=== PATIENT | female | born 1970 | race African-American/Black ===

== ENCOUNTER 2019-05-10 11:18 | Inpatient (IN) | payer SELFPAY ==
[~2019-05-10] VITALS: Ht 149.9 cm; Wt 62.6 kg
[2019-05-10] MEDS ORDERED: CLON-457 PO (11:44)
[2019-05-10] MEDS ORDERED: HYDR25TA PO (11:44)
[2019-05-10] MEDS ORDERED: ONDANSETRON HCL 4MG/2ML INJ IV STA (13:34)
[2019-05-10] MEDS ORDERED: MORPHINE SULFATE 4 MG/ML CPJ (NOT FOR IM USE) IV STA (13:34)
[2019-05-10 14:02] LABS: BASOPHILS % 0.5 % (0.0-2.0); EOSINOPHILS % 1.1 % (0.0-5.0); HEMATOCRIT. 37.8 % (36.0-48.0); HEMOGLOBIN. 12.7 g/dL (12.0-16.0); LYMPHOCYTES % 30.6 % (20.0-50.0); MEAN CORPUSCULAR VOLUME 92.5 fL (81.0-99.0); MEAN PLATELET VOLUME 8.6 fl (7.4-10.4); MONOCYTES % 9.7 % (2.0-8.0); NEUTROPHILS % 58.1 % (40.0-76.0); PLATELET 235 x1000/uL (130-400); RED BLOOD CELL COUNT 4.09 mill/uL (4.2-5.4); RED CELL DISTRIBUTION WIDTH 14.4 % (11.6-14.6)
[2019-05-10 14:08] LABS: CHLORIDE 110 mEq/L (98-107)
[2019-05-10] MEDS ORDERED: ASPIRIN 81MG TABLET PO ONE (14:30)
[2019-05-10] MEDS ORDERED: MAGNESIUM/ALUMINUM HYDROXIDE/SIMETHICONE 30ML UDC PO PRN (17:00)
[2019-05-10] MEDS ORDERED: ACETAMINOPHEN 325MG TABLET PO PRN (17:00)
[2019-05-10] MEDS ORDERED: HYDROCODONE/ACETAMINOPHEN 5/325MG TABLET PO PRN (17:00)
[2019-05-10 17:24] LABS: *AMPHETAMINES SCREEN URINE NEGATIVE (NEGATIVE); *BARBITURATES SCREEN URINE NEGATIVE (NEGATIVE); *BENZODIAZEPINES SCREEN URINE NEGATIVE (NEGATIVE); CANNABINOID URINE SCREEN NEGATIVE (NEGATIVE); METHADONE URINE SCREEN NEGATIVE (NEGATIVE); OPIATES URINE SCREEN NEGATIVE (NEGATIVE); PHENCYCLIDINE URINE SCREEN NEGATIVE (NEGATIVE)
[2019-05-10 17:25] LABS: *COCAINE SCREEN URINE NEGATIVE (NEGATIVE)
[2019-05-10] MEDS: MORPHINE SULFATE 2 MG/ML CPJ (NOT FOR IM USE) IV PRN (19:33)
[2019-05-10 22:30] VITALS: BP 185/87
[2019-05-10] MEDS ORDERED: LIDOCAINE 5% PATCH TOP SCH (23:00)
[2019-05-11] VITALS: BP 185/87
[2019-05-11] MEDS: IBUPROFEN 400MG TABLET PO SCH ×4 (00:34→18:34)
[2019-05-11] MEDS: CLONIDINE 0.1MG TABLET PO SCH ×4 (00:35→21:07)
[2019-05-11] MEDS: MORPHINE SULFATE 2 MG/ML CPJ (NOT FOR IM USE) IV PRN ×5 (00:36→20:03)
[2019-05-11 04:00] VITALS: BP_SYST 140; BP_SYST 147; BP_SYST 155; BP_DIAS 80; BP_DIAS 84; BP_DIAS 89
[2019-05-11] MEDS: ONDANSETRON HCL 4MG/2ML INJ IV PRN ×2 (05:19→15:25)
[2019-05-11 07:27] LABS: BASOPHILS % 0.5 % (0.0-2.0); EOSINOPHILS % 1.7 % (0.0-5.0); HEMATOCRIT. 38.4 % (36.0-48.0); HEMOGLOBIN. 12.8 g/dL (12.0-16.0); LYMPHOCYTES % 41.7 % (20.0-50.0); MEAN CORPUSCULAR VOLUME 93.4 fL (81.0-99.0); MEAN PLATELET VOLUME 8.6 fl (7.4-10.4); MONOCYTES % 9.4 % (2.0-8.0); NEUTROPHILS % 46.7 % (40.0-76.0); PLATELET 214 x1000/uL (130-400); RED BLOOD CELL COUNT 4.11 mill/uL (4.2-5.4); RED CELL DISTRIBUTION WIDTH 14.6 % (11.6-14.6)
[2019-05-11] MEDS ORDERED: REGADENOSON 0.4 MG/5 ML IV SCH (07:30)
[2019-05-11] MEDS ORDERED: CLONIDINE 0.1MG TABLET PO SCH (07:30)
[2019-05-11 08:00] VITALS: BP 140/81
[2019-05-11 08:04] LABS: CHLORIDE 109 mEq/L (98-107)
[2019-05-11 08:11] LABS: LDL CHOLESTEROL 109 mg/dL (5-100)
[2019-05-11 08:12] LABS: PHOSPHORUS 3.4 mg/dL (2.5-4.9)
[2019-05-11 08:13] LABS: HDL CHOLESTEROL 55 mg/dL (40-59)
[2019-05-11] MEDS: HYDROCHLOROTHIAZIDE 25MG TABLET PO SCH ×2 (09:00→10:36)
[2019-05-11 12:00] VITALS: BP 135/81
[2019-05-11 12:15] LABS: HCG SCREEN NEGATIVE
[2019-05-11 16:00] VITALS: BP_SYST 129; BP_SYST 130; BP_SYST 132; BP_DIAS 78; BP_DIAS 79; BP_DIAS 80
[2019-05-11 20:00] VITALS: BP 126/78
[2019-05-12] MEDS: MORPHINE SULFATE 2 MG/ML CPJ (NOT FOR IM USE) IV PRN ×3 (00:11→08:41)
[2019-05-12 04:00] VITALS: BP 143/86
[2019-05-12] MEDS: CLONIDINE 0.1MG TABLET PO SCH (06:00)
[2019-05-12] MEDS: IBUPROFEN 400MG TABLET PO SCH ×2 (06:07)
[2019-05-12 06:45] LABS: BASOPHILS % 0.3 % (0.0-2.0); EOSINOPHILS % 1.8 % (0.0-5.0); HEMATOCRIT. 39.3 % (36.0-48.0); LYMPHOCYTES % 37.9 % (20.0-50.0); MEAN CORPUSCULAR HEMOGLOBIN 30.7 pg (28.0-32.0); MEAN CORPUSCULAR VOLUME 93.2 fL (81.0-99.0); MEAN PLATELET VOLUME 8.3 fl (7.4-10.4); MONOCYTES % 9.2 % (2.0-8.0); NEUTROPHILS % 50.8 % (40.0-76.0); PLATELET 211 x1000/uL (130-400); RED BLOOD CELL COUNT 4.22 mill/uL (4.2-5.4); RED CELL DISTRIBUTION WIDTH 14.3 % (11.6-14.6)
[2019-05-12 07:07] LABS: CHLORIDE 105 mEq/L (98-107)
[2019-05-12 08:00] VITALS: BP 124/64
[2019-05-12 08:41] VITALS: BP 124/64
== END 2019-05-12 10:50 | disposition left against medical advice (07) | DRG 198 ==
LOC: ER 12:24 → 6WST 15:25 → ENRESERV 20:45 → 6WST 05-11
PROVIDERS: ADMIT Family Medicine Adult Medicine; ATTEND Family Medicine Adult Medicine
DX: R07.89 Other chest pain (principal); I25.2 Old myocardial infarction; I10 Essential (primary) hypertension; R55 Syncope and collapse; R26.9 Unspecified abnormalities of gait and mobility; S62.102A Fracture of unspecified carpal bone, left wrist, initial encounter for closed fracture; X58.XXXA Exposure to other specified factors, initial encounter; Y93.89 Activity, other specified; Y92.89 Other specified places as the place of occurrence of the external cause; Z88.0 Allergy status to penicillin; Z79.899 Other long term (current) drug therapy; Z90.49 Acquired absence of other specified parts of digestive tract; Y99.8 Other external cause status; Z90.711 Acquired absence of uterus with remaining cervical stump; Z82.49 Family history of ischemic heart disease and other diseases of the circulatory system
CPT/HCPCS: 36415; 70544; 71045; 73110; 73200; 78452; 80048; 80061; 80305; 80320; 82962; 83036; 83735; 83880; 84100; 84484; 84703; 93005; 93017; 93306; 93880; 93970; 96374; 97166; 99285; A9500; J2270; J2405; G0480